=== PATIENT | female | born 1975 | race Caucasian/White ===

== ENCOUNTER 2020-06-26 08:58 | Outpatient (CLI) | payer OTHER, SELFPAY ==
--- NOTE | 2020-06-26 09:34 | CT_ITS ---
WS: [id number] CT ABDOMEN PELVIS TECHNIQUE: Noncontrast CT of the abdomen and pelvis with coronal and sagittal reformatted images. CLINICAL INFORMATION: ABDOMINAL PAIN, DYSURIA, HEMATURIA COMPARISON: CT 5 13,013 DLP: 1228.[address] scans at [facility] use at least one of these dose optimization techniques: automat ed exposure control; mA and/or kV adjustment per patient size (includes targeted exams where dose is matched to clinical indication); or iterative reconstruction. FINDINGS: 4 mm noncalcified nodule right lower lobe laterally. Noncontrast liver is normal. Normal noncontrast spleen. Normal GE junction. Prior postoperative changes appendectomy and hysterectomy. Fatty atrophy of the pancreas. Noncontrast spleen is normal. Adrenal glands are normal. Obstructing 3 mm calculus in the left UVJ with inflammatory stranding and edema about the left kidney . Mild hydronephrosis. Lobulation involving the left mid kidney. Recommend interval follow-up to excl ude underlying abscess or lesion. Normal right kidney. No hydronephrosis in right kidney. No periaortic lymphadenopathy. Sigmoid diverticuli. No evidence of acute diverticulitis. No evidence of small or large bowel obstruction. Incidental fat-containing umbilical hernia. No inguinal lymphade nopathy. CT/CT kidney stone [id number] IMPRESSION: 1. Obstructing 3 mm calculus left UVJ measuring 3 mm 2. Perinephric inflammatory stranding and edema about the left kidney. Mild le ft hydronephrosis. 3. Lobulation left mid kidney. Recommend interval follow-up to exclude develop ing abscess or underlying lesion. 4. No hydronephrosis in right kidney. 5. A few sigmoid diverticuli. No evidence of acute diverticulitis. 6. Incidental fat-containing umbilical hernia. 7. Noncalcified 4 mm nodule right lower lobe. Recommend [address] foll ow-up. 8. Prior hysterectomy and appendectomy.
== END 2020-06-26 08:59 | disposition home or self-care (01) ==
LOC: RADWPI 09:03
PROVIDERS: Family Provider Nurse Practitioner Family; Visit Provider Nurse Practitioner Family
DX: R10.9 Unspecified abdominal pain (principal); R30.0 Dysuria; R31.9 Hematuria, unspecified; N21.9 Calculus of lower urinary tract, unspecified; Q63.1 Lobulated, fused and horseshoe kidney; K57.30 Diverticulosis of large intestine without perforation or abscess without bleeding; K42.9 Umbilical hernia without obstruction or gangrene; Z90.710 Acquired absence of both cervix and uterus; Q42.8 Congenital absence, atresia and stenosis of other parts of large intestine
CPT/HCPCS: 74176

== ENCOUNTER 2020-06-27 07:51 | Outpatient (CLI) | payer OTHER, SELFPAY ==
--- NOTE | 2020-06-27 07:00 | XRR_ITS ---
PROCEDURE INFORMATION: Exam: XR Abdomen, 1 View Exam date and time: 06/27/2020 8:06 AM Age: 45 years old Clinical indication: Condition or disease; Kidney or ureter condition; Calculus (stone) in kidney; Prior surgery; Surgery type: Hysto, hernia; Additional info: Stones TECHNIQUE: Imaging protocol: XR of the abdomen. Views: Frontal supine view of the abdomen. 1 View. COMPARISON: CT kidney stone [id number] 06/26/2020 9:39 AM FINDINGS: Gastrointestinal tract: No dilated gas-filled loops of bowel. Organs: No radiopaque renal or ureteral calculi. Bones/joints: Multilevel facet arthropathy in the lower lumbar spine. XR/XR KUB [id number] IMPRESSION: No radiopaque calculi.
== END 2020-06-27 07:52 | disposition home or self-care (01) ==
PROVIDERS: PCP Nurse Practitioner Family; Visit Provider Urology
DX: N20.1 Calculus of ureter (principal)
CPT/HCPCS: 74018; 81001; 82365; 88300

== ENCOUNTER 2020-09-12 12:51 | Outpatient (CLI) | payer OTHER, SELFPAY ==
--- NOTE | 2020-09-12 12:56 | XR_ITS ---
WS: [id number] Exam: XR KUB [id number] Date/Time of Exam: 09/12/2020 12:57 PM Reason For Exam: HEMATURIA, CALCULUS OF KIDNEY Comparison 06/27/2008. No bowel obstruction or free air. No abnormal appearing calcifications in the abdomen. Visualized organ margins are intact. Bony structures are unremarkable. XR/XR KUB [id number] IMPRESSION: 1. No acute process noted. No abnormal calcifications visualized in the abdomen .
== END 2020-09-12 12:52 | disposition home or self-care (01) ==
LOC: RADWPI 12:56
PROVIDERS: PCP Nurse Practitioner Family; Visit Provider Nurse Practitioner Family
DX: R31.9 Hematuria, unspecified (principal); N20.0 Calculus of kidney
CPT/HCPCS: 74018